=== PATIENT | male | born 1990 | race Caucasian/White ===

== ENCOUNTER 2022-01-29 11:17 | Emergency (ER) | payer SELFPAY ==
[2022-01-29 11:27] VITALS: BP 161/82; PULSE 64; RESP 16; TEMP 36.4; O2SAT 96; BMI 42.4
--- NOTE | 2022-01-29 11:52 | CT_ITS ---
WS: [id number] CT HEAD NONCONTRAST HISTORY: episode of dizziness, visual changes TECHNIQUE: Contiguous axial imaging performed through the brain in 2.5 mm imaging. Bone and soft tiss ue windows. Sagittal and coronal reformats reviewed. All CT scans at [facility] use at least one of these dose optimization techniques: automated exposure control; mA and/or kV adjustment per pa tient size (includes targeted exams where dose is matched to clinical indication); or iterative recon struction. DLP: 1215.28 mGy.cm COMPARISON: None available. No acute intracranial hemorrhage, midline shift or mass effect. No mass is an increased density. No h emorrhage into the globes. Focal area of volume loss involving the posterior RIGHT occipital lobe from a prior surgical defect. Defect and volume loss extends into the posterior RIGHT cerebellum. No new mass effect. Ventricles: Ventricles are normal size. No inferior displacement of the cerebellar tonsils. The RIGH T cerebellar tonsil is slightly more inferiorly descended than the LEFT. Paranasal sinuses: As visualized are clear. Mastoid air cells: Well pneumatized. Calvarium and scalp: Large craniotomy defect involving the RIGHT parieto-occipital region. CT/CT head wo con* [id number] IMPRESSION: 1. No acute intracranial hemorrhage or edema. 2. No mass effect or hyperattenuating nodules. 3. No hemorrhage within to the globes. 4. Focal area of encephalomalacia in the posterior RIGHT occipital and cerebel lar lobes from a prior surgery. Large RIGHT associated craniotomy defect. No ac [place] findings.
--- NOTE | 2022-01-29 11:55 | ED_ITS ---
HPI - Dizziness General: Chief Complaint: Dizziness Stated Complaint: Dizzy, seeing things, confusion Time Seen by Provider: 01/29/22 11:36 Source: patient and family (mother) Mode of arrival: ambulatory Limitations: no limitations History of Present Illness: HPI Narrative: Patient is a 31-year-old male who presents to ED today along with his mother for an episode that occurred at work earlier today. 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 He felt like his vision was off stating that it looked like the conveyor belt was moving backwards. He states he went and spoke to his boss and felt like he was having some expressive aphasia/trouble with word finding. He overall just felt very foggy headed. He states upon arrival to the ED most of his symptoms have completely resolved. 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 Onset (ago): hour(s) History of similar symptoms: No Associated symptoms: Denies chest pain, chills, headache(s), malaise, nausea, palpitations, syncope or vomiting Associated neuro symptoms: Deny numbness in extremities Review of Systems Const: Denies: fever(s), chills, body aches, fatigue or malaise Eyes: Reports: change in vision, blurry vision and other (resolved now) Card: Denies: chest pain, palpitations, irregular heart rhythm, edema, swelli ng of feet/ankles, lightheadedness, syncope, pre-syncope, dyspnea on exertion, orthopnea, leg pain with exertion or acrocyanosis Resp: Denies: dyspnea GI: Denies: abdominal pain, nausea or vomiting Musc: Denies: neck pain, back pain, extremity pain or joint pain Skin/Breast: Denies: rash Neuro: Reports: dizziness, Slurred speech present (resolved now), difficulty communicating thoughts and other (reports feeling foggy ); Denies: headache(s), numbness in extremities, weakness in extremities, sensory changes, lack of coordination, difficulty walking, frequent falls or seizure- like activity Physical Exam Const: COMMON NORMALS: no acute distress, patient oriented x3, no limitations, alert and well nourished GENERAL APPEARANCE: cooperative NUTRITIONAL APPEARANCE: obese ORIENTATION/CONSCIOUSNESS: Yes awake, Yes oriented to person, Yes oriented to place and Yes oriented to time HENMT: COMMON NORMALS: normocephalic and atraumatic HEAD & SCALP: normal to inspection, normocephalic and atraumatic Eye: GENERAL EYE: appearance normal, both eyes and all related structures and normal light reflex DIRECT OPHTHALMOSCOPY: Yes normal light reflex Neck/C-Spine: COMMON NORMALS: full ROM, no lymphadenopathy, supple and no meningeal signs Chest: COMMONS NORMALS: normal inspection of the chest Resp: COMMON NORMALS: normal respiratory effort and clear to auscultation bilaterally AUSCULTATION: clear to auscultation bilaterally Cardio: COMMON NORMALS: regular rate and regular rhythm RATE: regular rate RHYTHM: regular rhythm GI: COMMON NORMALS: Normal to inspection, nondistended, normoactive bowel sounds present, Soft to palpation, non-tender, No hepatosplenomegaly present and no masses PALPATION: Yes Soft to palpation and Yes No hepatosplenomegaly present : COMMON NORMALS: Yes no CVA tenderness BLADDER/KIDNEY EXAM: Yes no CVA tenderness Back/Pelvis: COMMON NORMALS: no CVA tenderness, thoracic and lumbar spine normal to inspection, no thoracic nor lumbar tenderness and thoraco-lumbar ROM normal Extremity: COMMON NORMALS: normal to inspection GENERAL: Yes normal exam except as noted Neuro: [place] COMA SCALE: document GCS findings [place] coma scale eye opening: Spontaneous [place]man coma scale verbal response: Orientated [place]man coma scale motor response: Obey commands [place] coma scale total score: 15 COMMON NORMALS: patient oriented x3, CN's II-XII intact bilaterally, moves all extremities, no focal motor deficits, no sensory deficits noted and gait normal SENSORIUM/ORIENTATION: Yes alert, Yes oriented to person, Yes oriented to place and Yes oriented to time MENINGEAL SIGNS: Yes no meningeal signs COORDINATION/BALANCE: [id number] test normal and [id number] test normal SPEECH: speech normal GAIT: Yes Normal gait present MOTOR EXAM: 5/5 motor strength present throughout COORDINATION: [id number] test normal and [id number] test normal Skin: COMMON NORMALS: no rashes or lesions noted GENERAL SKIN EXAM: no rashes or lesions noted Course Vital Signs: Vital signs: Vital Signs Temperature 97.6 F 01/29/22 11:27 Pulse Rate 88 01/29/22 12:25 Respiratory Rate 18 01/29/22 12:25 Blood Pressure 148/75 01/29/22 12:25 Pulse Oximetry 98 01/29/22 12:25 Oxygen Delivery Me thod 01/29/22 12:25 MDM - Dizziness Medical Decision Making Patient symptoms upon arrival to the ED have resolved. His vital signs are stable. He has a normal physical exam. NIHSS scale of 0. Blood work is unremarkable. CT scan showing no intracranial lesions/hemorrhage/edema/nodules. He does have changes consistent with his previous brain tumor removal/craniotomy. At this time we spoke about main risks of VHL being cyst expansion and hemorrhage and I don't see any evidence of either one of these at this time. He is requesting referral to oncology here as he recently moved to [facility]-referral placed for this. Also states he will follow up with PCP in in the meantime. Strict return to ED precautions given. Lab Data : 01/29/22 12:08 01/29/22 12:[address] 01/29/22 11:52 IMPRESSION: 1. No acute intracranial hemorrhage or edema. 2. No mass effect or hyperattenuating nodules. 3. No hemorrhage within to the globes. 4. Focal area of encephalomalacia in the posterior RIGHT occipital and cerebellar lobes from a prior surgery. Large RIGHT associated craniotomy defect. No acute findings. Laboratory Results WBC 8.6 10^3/uL (4.0-10.0) 01/29/22 12:08 RBC 5.11 10^6/uL (4.1-5.3) 01/29/22 12:08 Hgb 15.5 g/dL (11.7-16.6) 01/29/22 12:08 Hct 46.8 % (42.0-52.0) 01/29/22 12:08 MCV 91.6 fl (80-94) 01/29/22 12:08 MCH 30.3 pg (28.0-34.0) 01/29/22 12:08 MCHC 33.1 g/dL (30.0-36.0) 01/29/22 12:08 RDW 12.1 % (12.1-15.1) 01/29/22 12:08 Plt Count 279 10^3/cmm (130-400) 01/29/22 12:08 MPV 10.5 fL (7.4-10.4) H 01/29/22 12:08 Neut % (Auto) 59.9 % 01/29/22 12:08 Lymph % (Auto) 30.7 % 01/29/22 12:08 [place] % (Auto) 8.0 % 01/29/22 12:08 Eos % (Auto) 0.6 % 01/29/22 12:08 Baso % (Auto) 0.5 % 01/29/22 12:08 Neut # (Auto) 5.16 10^3/uL (1.8-7.7) 01/29/22 12:08 Lymph # (Auto) 2.7 10^3/uL (0.8-4.8) 01/29/22 12:08 [place] # (Auto) 0.7 10^3/uL (0.2-0.9) 01/29/22 12:08 Eos # (Auto) 0.1 10^3/uL (0.0-0.8) 01/29/22 12:08 Baso # (Auto) 0.0 10^3/uL (0.0-0.1) 01/29/22 12:08 Nucleated RBC % (auto) 0 % 01/29/22 12:08 Nucleated RBCs # 0.0 /100WBC 01/29/22 12:08 Sodium 141 mmol/L (136-145) 01/29/22 12:08 Potassium 3.9 mmol/L (3.5-5.1) 01/29/22 12:08 Chloride 103 mmol/L (98-107) 01/29/22 12:08 Carbon Dioxide 28 mmol/L (22-29) 01/29/22 12:08 Anion Gap 13.9 (5-19) 01/29/22 12:08 BUN 13 mg/dL (6-20) 01/29/22 12:08 Creatinine 0.7 mg/dL (0.7-1.2) 01/29/22 12:08 GFR Calculation 132.4 mL/min (90-130) H 01/29/22 12:08 Glucose 65 mg/dL (65-115) 01/29/22 12:08 Calculated Osmolality 290 mOsm/kg (285-295) 01/29/22 12:08 Calcium 9.3 mg/dL (8.5-10.5) 01/29/22 12:08 Total Bilirubin 0.7 mg/dL (0.15-1.2) 01/29/22 12:08 AST 21 U/L (0-40) 01/29/22 12:08 ALT 33 U/L (0-41) 01/29/22 12:08 Alkaline Phosphatase 76 U/L (40-130) 01/29/22 12:08 Total Protein 7.4 g/dL (6.6-8.7) 01/29/22 12:08 Albumin 4.2 g/dL (3.5-5.2) 01/29/22 12:08 Globulin 3.2 g/dL (1.3-4.6) 01/29/22 12:08 Urine Color Straw (Yellow) 01/29/22 12:08 Urine Appearance Clear (CLEAR) 01/29/22 12:08 Urine pH 7 (5-7) 01/29/22 12:08 Ur Specific [employer] 1.015 (1.005-1.030) 01/29/22 12:08 Urine Protein Neg (Negative) 01/29/22 12:08 Urine Glucose (UA) Norm (Normal) 01/29/22 12:08 Urine Ketones Negative (Negative) 01/29/22 12:08 Urine Blood Neg (Negative) 01/29/22 12:08 Urine Nitrate Negative (Negative) 01/29/22 12:08 Urine Bilirubin Neg (Negative) 01/29/22 12:08 Urine Urobilinogen 1 mg/dL (Negative) H 01/29/22 12:08 Ur Leukocyte Esterase Negative (Negative) 01/29/22 12:08 Discharge Plan Discharge Patient Disposition: Home Clinical Impression: VHL (von Hippel-Lindau syndrome) Condition: Stable Prescriptions: No Action No Known Home Medications Discharge Orders: Discharge ED (Routine); Ordered 01/29/22 Ordered By: Tia Frazier Stand Alone Forms: Work/School Release Coding Level of Care Code ED Insights Manager for Chg Fwd Exam Comprehensive
--- NOTE | 2022-01-29 11:57 | PC.PHAR ---
pt states he takes no rx or otc meds-pt states only smokes marijuana sometimes
[2022-01-29 12:19] LABS: Add Urine Microscopic? NO; Charge for UA Resulting for Rev
[2022-01-29 12:25] VITALS: BP 148/75; PULSE 88; RESP 18; O2SAT 98
[2022-01-29 12:25] LABS: Basophils % 0.5 %; Eosinophils # 0.1 10^3/uL (0.0-0.8); Eosinophils % 0.6 %; Hematocrit 46.8 % (42.0-52.0); Hemoglobin 15.5 g/dL (11.7-16.6); Lymphocytes # 2.7 10^3/uL (0.8-4.8); Lymphocytes % 30.7 %; Mean Corpuscular HGB Conc 33.1 g/dL (30.0-36.0); Mean Corpuscular Hemoglobin 30.3 pg (28.0-34.0); Mean Corpuscular Volume 91.6 fl (80-94); Mean Platelet Volume 10.5 fL (7.4-10.4); Monocytes # 0.7 10^3/uL (0.2-0.9); Neutrophils # 5.16 10^3/uL (1.8-7.7); Neutrophils % 59.9 %; Nucleated Red Blood Cells % 0 %; Platelet Count 279 10^3/cmm (130-400); Red Blood Count 5.11 10^6/uL (4.1-5.3); Red Cell Distribution Width 12.1 % (12.1-15.1); White Blood Count 8.6 10^3/uL (4.0-10.0)
[2022-01-29 12:28] LABS: Bilirubin Urine Neg (Negative); Blood Urine Neg (Negative); Glucose Urine UA Norm (Normal); Ketones Urine Negative (Negative); Leukocyte Esterase Urine Negative (Negative); Nitrate Urine Negative (Negative); Protein Urine Neg (Negative); Specific Gravity, Urine 1.015 (1.005-1.030); Urine Appearance Clear (CLEAR); Urine Color Straw (Yellow); Urobilinogen Urine 1 mg/dL (Negative); pH Urine 7 (5-7)
[2022-01-29 12:45] LABS: Alanine Aminotransferase 33 U/L (0-41); Albumin Level 4.2 g/dL (3.5-5.2); Alkaline Phosphatase 76 U/L (40-130); Anion Gap 13.9 (5-19); Aspartate Amino Transferase 21 U/L (0-40); Blood Urea Nitrogen 13 mg/dL (6-20); Calcium 9.3 mg/dL (8.5-10.5); Carbon Dioxide 28 mmol/L (22-29); Chloride 103 mmol/L (98-107); Globulin 3.2 g/dL (1.3-4.6); Glomerular Filtration Rate 132.4 mL/min (90-130); Glucose 65 mg/dL (65-115); Osmolality Calculated 290 mOsm/kg (285-295); Potassium 3.9 mmol/L (3.5-5.1); Sodium 141 mmol/L (136-145); Total Bilirubin 0.7 mg/dL (0.15-1.2); Total Protein 7.4 g/dL (6.6-8.7)
[2022-01-29 13:33] VITALS: BP 124/64; PULSE 74; RESP 21; O2SAT 98
--- NOTE | 2022-01-30 10:59 | DCPLANNER ---
Addendum entered by Nakita Francisco 04/30/22 09:23: landscape account manager spoke with Catie at [facility] regarding follow up appointment. landscape account manager was told that clinic is waiting to hear back from patient regarding follow up appointment. A voicemail was left for patient and a letter was sent to patient. Original Note: landscape account manager had message to schedule a follow up appointment for patient with oncology. landscape account manager called the [facility], spoke with Catie Elias, group reservations coordinator for the facility. landscape account manager gave clinic patients information, which will be printed and reviewed. Clinic will call patient with appointment information.
== END 2022-01-29 13:34 | disposition home or self-care (01) ==
PROVIDERS: Emergency Provider Physician Assistant
DX: Q85.8 Other phakomatoses, not elsewhere classified (principal)
CPT/HCPCS: 70450; 80053; 81003; 85025; 99284

== ENCOUNTER → 2023-01-23 18:20 | Outpatient (BNVA) | payer BC, MEDICAID, SELFPAY | PROVIDERS: Visit Provider Emergency Medicine | DX: R05.9 Cough, unspecified (principal); J06.9 Acute upper respiratory infection, unspecified | CPT/HCPCS: 87426 ==

== ENCOUNTER → 2023-08-29 11:42 | Outpatient (BNVA) | payer BC, SELFPAY | PROVIDERS: Visit Provider Psychiatry & Neurology Psychiatry | DX: F33.2 Major depressive disorder, recurrent severe without psychotic features (principal); Z79.899 Other long term (current) drug therapy | CPT/HCPCS: 80061; 83036 ==

== ENCOUNTER → 2024-12-28 12:11 | Outpatient (BNVA) | payer BC, SELFPAY | PROVIDERS: PCP Family Medicine Adult Medicine; Visit Provider Emergency Medicine | DX: J02.9 Acute pharyngitis, unspecified (principal) | CPT/HCPCS: 87426 ==